=== PATIENT | female | born 1940 | race African-American/Black ===

== ENCOUNTER 2018-02-08 04:41 | Emergency (ER) | payer OTHER ==
[~2018-02-08] VITALS: Ht 157.5 cm; Wt 65.8 kg
[~2018-02-08 04:41] MED LIST: CENTRUM SILVER1 EAC4; FLOVENT HFA 1110 MCG; HYDROCHLOROTHIA25 M2 PO; LISINOPRIL10 MG PO; PERFOROMIS20 MCG/2 M IH; PREDNISONE 20 M20 M1 PO; PROAIR HFA8.5 GM; TUMS PO; VENTOLIN HFA 1818 GM INH; VITAMIN D1000 UNI1 PO; ZYRTEC10 MG PO
[2018-02-08] MEDS ORDERED: ZPAK PO (06:14)
[2018-02-08] MEDS ORDERED: PREDNISONE 20 M20 MG PO (06:14)
[2018-02-08 06:41] VITALS: BP 133/57
== END 2018-02-08 06:42 | disposition home or self-care (01) ==
LOC: ER 04:41
DX: J44.1 Chronic obstructive pulmonary disease with (acute) exacerbation (principal); I10 Essential (primary) hypertension

== ENCOUNTER 2019-04-12 02:39 | Emergency (ER) | payer OTHER ==
[~2019-04-12] VITALS: Ht 157.5 cm; Wt 63.5 kg
[~2019-04-12 02:39] MED LIST changes: +PREDNISONE 20 M20 MG PO; +ZPAK PO
[2019-04-12 02:40] VITALS: BP 171/73
[2019-04-12] MEDS ORDERED: PREDNISONE 20 M20 MG PO (03:30)
== END 2019-04-12 03:47 | disposition home or self-care (01) ==
LOC: ER 02:39
DX: J45.901 Unspecified asthma with (acute) exacerbation (principal); I10 Essential (primary) hypertension